=== PATIENT | female | born 1995 | race Caucasian/White ===

== ENCOUNTER 2019-01-26 09:04 | Inpatient (IN) | payer OTHER ==
[2019-01-26] MEDS ORDERED: METHYLERGONOVINE 0.2 MG INJ IM (09:30)
[2019-01-26] MEDS ORDERED: OXYTOCIN 30 UNITS/LR 500 ML IV ×2 (09:30)
[2019-01-26] MEDS ORDERED: BUTORPHANOL 2 MG INJ IV (09:30)
[2019-01-26] MEDS ORDERED: CARBOPROST 250 MCG INJ IM (09:30)
[2019-01-26] MEDS ORDERED: IBUPROFEN 600 MG TAB PO (09:30)
[2019-01-26] MEDS ORDERED: MISOPROSTOL 200 MCG TAB PR (09:30)
[2019-01-26] MEDS: LACTATED RINGER'S 1,000 ML IV ×2 (09:48→15:30)
[2019-01-26 10:03] LABS: ADD MAN DIFF? NO
[2019-01-26 10:08] LABS: WHITE BLOOD COUNT 9.8 10^3/ul (4.8-10.8)
[2019-01-26 10:08] LABS: BASOPHILS % 0.4 % (0.0-2.0); EOSINOPHILS # 0.2 10^3/ul (0.0-0.5); EOSINOPHILS % 1.7 % (0.0-7.0); HEMATOCRIT 37.5 % (37.0-47.0); HEMOGLOBIN 11.7 g/dl (12.0-16.0); LYMPHOCYTES # 2.3 10^3/ul (0.8-2.9); LYMPHOCYTES % 23.5 % (15.0-51.0); MEAN CORPUSCULAR HEMOGLOBIN 23.3 pg (29.0-33.0); MEAN CORPUSCULAR HGB CONC 31.2 g/dl (32.0-37.0); MEAN CORPUSCULAR VOLUME 74.7 fl (82.0-101.0); MEAN PLATELET VOLUME 9.9 fl (7.4-10.4); MONOCYTE # 0.7 10^3/ul (0.3-0.9); MONOCYTES % 6.6 % (0.0-11.0); NEUTROPHIL # 6.5 10^3/ul (1.6-7.5); PLATELET COUNT 350 10^3/UL (140-415); RED BLOOD COUNT 5.02 10^6/ul (4.20-5.40); RED CELL DISTRIBUTION WIDTH 15.3 % (11.5-14.5)
[2019-01-26 10:27] LABS: INR 0.81; PROTIME 11.3 Sec (11.9-14.9); PT RATIO 0.9
[2019-01-26 10:28] LABS: PARTIAL THROMBOPLASTIN TIME 29.1 Sec (23.0-35.0)
[2019-01-26] MEDS: MISOPROSTOL 50 MCG CAPSULE PO ×2 (10:56→15:30)
[2019-01-26 11:48] LABS: HEPATITIS B SURFACE ANTIGEN NEGATIVE (NEGATIVE)
[2019-01-26] MEDS ORDERED: MISOPROSTOL 50 MCG CAPSULE PO (13:00)
[2019-01-26 16:26] LABS: RAPID PLASMA REAGIN NONREACTIVE (NR)
[2019-01-26 16:59] LABS: AMPHETAMINE/METHAMPHETAMINE Negative (NEGATIVE); BARBITURATES Negative (NEGATIVE); BENZODIAZEPINES Negative (NEGATIVE); CANNABINOIDS Negative (NEGATIVE); COCAINE Negative (NEGATIVE); OPIATES Negative (NEGATIVE)
[2019-01-27] MEDS: LACTATED RINGER'S 1,000 ML IV ×4 (00:23→22:43)
[2019-01-27] MEDS: MISOPROSTOL 50 MCG CAPSULE PO ×2 (02:38→06:42)
[2019-01-27] MEDS: OXYTOCIN 30 UNITS/LR 500 ML IV (18:33)
[2019-01-27] MEDS ORDERED: FENTAnyl 2MCG/ML-ROPIV 0.2% 100 ML (22:39)
[2019-01-27] MEDS ORDERED: FENTAnyl 50 MCG/ML VIAL (22:39)
[2019-01-27] MEDS ORDERED: NALOXONE (0.4 MG/ML) INJ IV (23:00)
[2019-01-28] MEDS: LACTATED RINGER'S 1,000 ML IV ×2 (03:11→12:50)
[2019-01-28] MEDS: FENTAnyl 2MCG/ML-ROPIV 0.2% 100 ML BAG EPI ×2 (06:11→12:55)
[2019-01-28 08:41] LABS: AMPHETAMINE/METHAMPHETAMINE Negative (NEGATIVE); BARBITURATES Negative (NEGATIVE); BENZODIAZEPINES Negative (NEGATIVE); CANNABINOIDS Negative (NEGATIVE); COCAINE Negative (NEGATIVE); OPIATES Negative (NEGATIVE)
[2019-01-28] MEDS: MINERAL OIL LIGHT 10 ML VIAL TOP (13:30)
[2019-01-28] MEDS: LIDOCAINE 1% (MPF) 30 ML INJ INJ (14:13)
[2019-01-28] MEDS: OXYTOCIN 30 UNITS/LR 500 ML IV (14:33)
[2019-01-28] MEDS: ACETAMINOPHEN 500 MG TAB PO (14:34)
[2019-01-28] MEDS: KETOROLAC 30 MG INJ IV (15:20)
[2019-01-28] MEDS ORDERED: METHYLERGONOVINE 0.2 MG INJ IM (17:30)
[2019-01-28] MEDS ORDERED: HYDROCODONE/APAP (5/325) TAB PO (17:30)
[2019-01-28] MEDS ORDERED: CARBOPROST 250 MCG INJ IM (17:30)
[2019-01-28] MEDS ORDERED: OXYTOCIN 30 UNITS/LR 500 ML IV (17:30)
[2019-01-28] MEDS ORDERED: ZOLPIDEM 5 MG TAB PO (17:30)
[2019-01-28] MEDS ORDERED: DIBUCAINE 1% 30 GM OINT TOP (17:30)
[2019-01-28] MEDS ORDERED: MISOPROSTOL 200 MCG TAB PR (17:30)
[2019-01-28] MEDS: WITCH HAZEL/GLYCERIN PAD PR (17:34)
[2019-01-28] MEDS: LANOLIN HPA 1 PKT TOP (17:34)
[2019-01-28] MEDS: CEPHALEXIN 500 MG CAP PO (17:34)
[2019-01-28] MEDS: BENZOCAINE 20% 56 ML SPRAY TOP (17:35)
[2019-01-28] MEDS: LACTATED RINGER'S 1,000 ML IV* (17:38)
[2019-01-28] MEDS: IBUPROFEN 600 MG TAB PO (18:00)
[2019-01-28] MEDS: MAGNESIUM HYDROXIDE 30ML CUP PO (21:42)
[2019-01-28] MEDS: SENNA/DOCUSATE NA (8.6MG/50MG) TAB PO (21:42)
[2019-01-28] MEDS: HYDROCODONE/APAP (5/325) TAB PO (21:48)
[2019-01-29] MEDS: CEPHALEXIN 500 MG CAP PO ×4 (01:00→18:07)
[2019-01-29] MEDS: IBUPROFEN 600 MG TAB PO ×4 (01:01→18:33)
[2019-01-29] MEDS: LACTATED RINGER'S 1,000 ML IV* (01:01)
[2019-01-29] MEDS: MAGNESIUM HYDROXIDE 30ML CUP PO ×2 (08:56→21:06)
[2019-01-29 09:15] LABS: ADD MAN DIFF? NO
[2019-01-29] MEDS: SENNA/DOCUSATE NA (8.6MG/50MG) TAB PO ×2 (09:16→21:06)
[2019-01-29 09:19] LABS: WHITE BLOOD COUNT 13.9 10^3/ul (4.8-10.8)
[2019-01-29 09:19] LABS: BASOPHILS % 0.2 % (0.0-2.0); EOSINOPHILS # 0.2 10^3/ul (0.0-0.5); EOSINOPHILS % 1.1 % (0.0-7.0); LYMPHOCYTES # 2.7 10^3/ul (0.8-2.9); LYMPHOCYTES % 19.7 % (15.0-51.0); MEAN CORPUSCULAR HEMOGLOBIN 23.7 pg (29.0-33.0); MEAN CORPUSCULAR VOLUME 76.3 fl (82.0-101.0); MEAN PLATELET VOLUME 10.1 fl (7.4-10.4); NEUTROPHIL # 9.9 10^3/ul (1.6-7.5); NEUTROPHILS % 71.3 % (39.0-77.0); PLATELET COUNT 281 10^3/UL (140-415); RED CELL DISTRIBUTION WIDTH 15.7 % (11.5-14.5)
[2019-01-30] MEDS: CEPHALEXIN 500 MG CAP PO ×3 (00:27→12:24)
[2019-01-30] MEDS: IBUPROFEN 600 MG TAB PO ×3 (00:27→12:24)
[2019-01-30] MEDS: WITCH HAZEL/GLYCERIN PAD PR (03:44)
[2019-01-30] MEDS: MAGNESIUM HYDROXIDE 30ML CUP PO (09:00)
[2019-01-30] MEDS: VARICELLA VACCINE LIVE/PF 1,350 UNIT/0.5 ML ML SC* (09:00)
[2019-01-30] MEDS: SENNA/DOCUSATE NA (8.6MG/50MG) TAB PO (09:00)
[2019-01-30] MEDS: DIPHTH/TET/ACEL PERTUSS (ADULT) 0.5 ML VIAL IM* (09:00)
[2019-01-30] MEDS: MEASLES,MUMPS,RUBELLA VACCINE INJ SC* (09:00)
== END 2019-01-30 14:25 | disposition home or self-care (01) | DRG 807 ==
LOC: PP1 01-28 16:05 → L-D 09:04
PROVIDERS: Obstetrics & Gynecology
PROC: 10E0XZZ Delivery of Products of Conception, External Approach (ICD-10-PCS; principal; 2019-01-28)
PROC: 0KQM0ZZ Repair Perineum Muscle, Open Approach (ICD-10-PCS; 2019-01-28)
DX: O48.0 Post-term pregnancy (principal); O70.1 Second degree perineal laceration during delivery; O66.0 Obstructed labor due to shoulder dystocia; Z37.0 Single live birth; Z3A.40 40 weeks gestation of pregnancy
CPT/HCPCS: 62322; 76816; 80307; 85025; 85610; 85730; 86592; 86850; 86900; 86901; 87340; 90716; 99464